=== PATIENT | female | born 1960 | race Caucasian/White ===

== ENCOUNTER 2021-02-01 11:22 | Emergency (ER) | payer BC, OTHER ==
[~2021-02-01] VITALS: Ht 157 cm; Wt 108.2 kg
[2021-02-01 11:51] LABS: BASOPHILS % (AUTO) 1 % (0-10); EOSINOPHILS % (AUTO) 4 % (0-10); HEMATOCRIT 42 % (35-52); HEMOGLOBIN 13.5 g/dL (11.5-16.0); LYMPHOCYTES % (AUTO) 43 % (12-44); MEAN CORPUSCULAR HEMOGLOBIN 26 pg (25-34); MEAN CORPUSCULAR HGB CONC 32 g/dL (32-36); MEAN CORPUSCULAR VOLUME 80 fL (80-99); NEUTROPHILS % (AUTO) 43 % (42-75); PLATELET COUNT 198 10^3/uL (130-400); WHITE BLOOD COUNT 9.8 10^3/uL (4.3-11.0)
[2021-02-01 11:52] LABS: BASOPHILS # (AUTO) 0.1 10^3/uL (0.0-0.1); EOSINOPHILS # (AUTO) 0.4 10^3/uL (0.0-0.3); LYMPHOCYTES # (AUTO) 4.2 X 10^3 (1.0-4.0); MONOCYTES # (AUTO) 0.9 X 10^3 (0.0-1.0); MONOCYTES % (AUTO) 9 % (0-12); NEUTROPHILS # (AUTO) 4.2 X 10^3 (1.8-7.8)
--- NOTE | 2021-02-01 11:54 | Diagnostic Imaging Report ---
INDICATION: SOA COMPARISON: None FINDINGS: Single frontal view of the chest demonstrates normal heart size and pulmonary vascularity. The lungs are well aerated and clear. No large pleural effusion or pneumothorax is seen. The visualized osseous structures show no acute abnormalities. IMPRESSION: 1. No acute cardiopulmonary process. Dictated by: Dictated on workstation # [id number]
[2021-02-01 12:27] LABS: SMEAR SCAN COMMENT OK
[2021-02-01 12:34] LABS: CHLORIDE 100 MMOL/L (98-107); POTASSIUM 4.6 MMOL/L (3.6-5.0); SODIUM 134 MMOL/L (135-145)
[2021-02-01 12:35] LABS: ALANINE AMINOTRANSFERASE 26 U/L (0-55); ALKALINE PHOSPHATASE 108 U/L (40-136); BILIRUBIN,TOTAL 0.2 MG/DL (0.1-1.0); BUN/CREATININE RATIO 19; CALCIUM 9.3 MG/DL (8.5-10.1); CARBON DIOXIDE 24 MMOL/L (21-32); CREATININE SERUM 0.97 MG/DL (0.60-1.30); GFR ESTIMATED 58; GLUCOSE 221 MG/DL (70-105)
[2021-02-01 12:36] LABS: ALBUMIN 3.9 GM/DL (3.2-4.5); TOTAL PROTEIN 7.9 GM/DL (6.4-8.2)
--- NOTE | 2021-02-01 13:06 | ED Cough/URI ---
General Chief Complaint: Cough/Cold/Flu Symptoms Stated Complaint: SOB; WHEEZING Source: patient Exam Limitations: no limitations History of Present Illness Date Seen by Provider: Feb 01, 2021 Time Seen by Provider: 11:30 Initial Comments Patient is a 60-year-old female who presents with persistent dry hacking cough for the past 5 days. Patient was evaluated at urgent care 3 days ago and was diagnosed with strep. She has taken amoxicillin and Tessalon Perles, symptoms improved. She did not have Covid testing. She has history of asthmatic bronchitis and has been using her inhaler with some improvement. She denies fever chills, nausea vomiting sweats. She does report bilateral pitting anemia. [place] compression stockings. Denies chest pain chest tightness, exertional shortness of breath, nausea vomiting sweats or abdominal pain or any other anginal equivalent. No other acute symptoms or complaints. Patient does not currently have a PCP. History of porcine valve replacement and CAD. She is compliant with her home medications Timing/Duration: week Severity/Quality: dry cough Prior Episodes/Possible Cause: other Modifying Factors: Improves With Other Associated Symptoms: other Allergies and Home Medications Allergies Coded Allergies: No Known Drug Allergies (Unverified , 02/01/21) Patient Home Medication List Home Medication List Reviewed: Yes Review of Systems Review of Systems Constitutional: see HPI EENTM: see HPI Respiratory: see HPI Cardiovascular: see HPI Gastrointestinal: see HPI Musculoskeletal: see HPI Skin: see HPI Psychiatric/Neurological: See HPI Hematologic/Lymphatic: See HPI All Other Systems Reviewed Negative Unless Noted: Yes Past Fhtvayz-Giufjh-Uxwvhi Hx Patient Social History Tobacco Use?: No Use of E-Cig and/or Vaping dev: No Substance use?: No Alcohol Use?: No Pt feels they are or have been: No Immunizations Up To Date First/Initial COVID19 Vaccinat: July 2020 Second COVID19 Vaccination Jose M: August 2020 Physical Exam Vital Signs - First Documented 02/01/21 11:35 Temp 35.7 Pulse 91 Resp 11 B/P (MAP) 147/53 (84) Pulse Ox 97 O2 Delivery Room Air Capillary Refill : Less Than 3 Seconds Height: '" Weight: lbs. oz. kg; 43.00 BMI Method: General Appearance: no apparent distress Eyes: Bilateral Eye Normal Inspection, Bilateral Eye PERRL, Bilateral Eye EOMI HEENT: PERRL/EOMI, normal ENT inspection Neck: non-tender, supple Respiratory: rhonchi, other Cardiovascular: normal peripheral pulses, regular rate, rhythm Gastrointestinal: non tender, soft Extremities: non-tender, normal inspection Neurologic/Psychiatric: alert, normal mood/affect, oriented x 3 Skin: normal color Lymphatic: no adenopathy Focused Exam Sepsis Stage: Ruled Out Progress/Results/Core Measures Suspected Sepsis SIRS Temperature: Pulse: 91 Respiratory Rate: 11 Laboratory Tests 02/01/21 11:40: White Blood Count 9.8 Blood Pressure 147 /53 Mean: 84 Laboratory Tests 02/01/21 11:40: Creatinine 0.97, Platelet Count 198, Total Bilirubin 0.2 Results/Orders Lab Results Laboratory Tests Test 02/01/21 11:40 Range/Units White Blood Count 9.8 4.3-11.0 10^3/uL Red Blood Count 5.27 H 3.80-5.11 10^6/uL Hemoglobin 13.5 11.5-16.0 g/dL Hematocrit 42 35-52 % Mean Corpuscular Volume 80 80-99 fL Mean Corpuscular Hemoglobin 26 25-34 pg Mean Corpuscular Hemoglobin Concent 32 32-36 g/dL Red Cell Distribution Width 13.8 10.0-14.5 % Platelet Count 198 130-400 10^3/uL Mean Platelet Volume 11.0 9.0-12.2 fL Immature Granulocyte % (Auto) 1 % Neutrophils (%) (Auto) 43 42-75 % Lymphocytes (%) (Auto) 43 12-44 % Monocytes (%) (Auto) 9 0-12 % Eosinophils (%) (Auto) 4 0-10 % Basophils (%) (Auto) 1 0-10 % Neutrophils # (Auto) 4.2 1.8-7.8 X 10^3 Lymphocytes # (Auto) 4.2 H 1.0-4.0 X 10^3 Monocytes # (Auto) 0.9 0.0-1.0 X 10^3 Eosinophils # (Auto) 0.4 H 0.0-0.3 10^3/uL Basophils # (Auto) 0.1 0.0-0.1 10^3/uL Immature Granulocyte # (Auto) 0.1 0.0-0.1 10^3/uL Sodium Level 134 L 135-145 MMOL/L Potassium Level 4.6 3.6-5.0 MMOL/L Chloride Level 100 98-107 MMOL/L Carbon Dioxide Level 24 21-32 MMOL/L Anion Gap 10 5-14 MMOL/L Blood Urea Nitrogen 18 7-18 MG/DL Creatinine 0.97 0.60-1.30 MG/DL Estimat Glomerular Filtration Rate 58 BUN/Creatinine Ratio 19 Glucose Level 221 H 70-105 MG/DL Calcium Level 9.3 8.5-10.1 MG/DL Corrected Calcium 9.4 8.5-10.1 MG/DL Total Bilirubin 0.2 0.1-1.0 MG/DL Aspartate Amino Transf (AST/SGOT) 22 5-34 U/L Alanine Aminotransferase (ALT/SGPT) 26 0-55 U/L Alkaline Phosphatase 108 40-136 U/L Total Protein 7.9 6.4-8.2 GM/DL Albumin 3.9 3.2-4.5 GM/DL Smear Scan OK My Orders Orders - ALISHA SUTHERLAND DO Cbc With Automated Diff (02/01/21 11:41) Comprehensive Metabolic Panel (02/01/21 11:41) Troponin I Fs (02/01/21 11:41) Probnp Fs (02/01/21 11:41) Chest 1 View Ap/Pa Only (02/01/21 11:41) Ekg Tracing (02/01/21 12:08) Vital Signs/I&O 02/01/21 11:35 Temp 35.7 Pulse 91 Resp 11 B/P (MAP) 147/53 (84) Pulse Ox 97 O2 Delivery Room Air Capillary Refill : Less Than 3 Seconds Blood Pressure Mean: 84 Departure Communication (Admissions) Chest x-ray: No acute cardiopulmonary disease. EKG: Sinus rhythm, right bundle branch block, old inferior infarct, no acute ST- T wave changes, normal ID, and QTc intervals. Symptoms consistent with bronchitis with concerns for possible Covid. No evidence of respiratory compromise or cardiac involvement. Recommendations are outpatient Covid testing PCP follow-up with consideration of Regeneron therapy. Additionally, patient may benefit from a brief course of steroids. She is instructed to monitor blood sugars carefully. Return precautions reviewed. Patient verbalizes understanding agreement discharge instructions prior to departure. Impression Primary Impression: Viral bronchitis Disposition: HOME, SELF-CARE Condition: Stable Departure-Patient Inst. Decision time for Depature: 13:05 Referrals: YOHAN CARIAS DO (PCP/Family) Primary Care Physician Patient Instructions: Acute Bronchitis Add. Discharge Instructions: You were evaluated in the emergency department for cough shortness of breath. Chest x-ray was performed does not show evidence of pneumonia. Your symptoms are consistent with Covid or another respiratory virus. Please obtain outpatient testing either through retail outlet, local clinic or your PCPs office. In meantime, continue current prescribed medications and take newly prescribed medications as directed. Please carefully monitor your blood sugars. Return to the ED if new or worsening symptoms. All discharge instructions reviewed with patient and/or family. Voiced understanding. Scripts Prednisone (Prednisone) 20 Mg Tab 40 MG PO DAILY, #3 TAB 0 Refills Prov: ALISHA SUTHERLAND DO 02/01/21 ALISHA SUTHERLAND DO Feb 01, 2021 13:05
[2021-02-01] MEDS ORDERED: PRD20T PO (13:07)
[2021-02-01 13:23] VITALS: BP 132/46
== END 2021-02-01 13:14 | disposition home or self-care (01) ==
LOC: ER FS 11:25
DX: J20.8 Acute bronchitis due to other specified organisms (principal); Z20.822 Contact with and (suspected) exposure to COVID-19
CPT/HCPCS: 36415; 71045; 80053; 83880; 84484; 85025; 87635; 93005